=== PATIENT | male | born 1930 | race Caucasian/White ===

== ENCOUNTER 2017-03-09 17:33 | Emergency (ER) | payer OTHER ==
[~2017-03-09] VITALS: Ht 162.6 cm; Wt 72.6 kg
--- NOTE | ~2017-03-09 | EKG ---
[place] [address] [facility] [place] [address] ELECTROCARDIOGRAM REPORT Name: ISIDRO MOON Room #: [facility]P [facility]ina[facility] [id number] Admission: 03/09/17 Attend Phys: Discharge: 03/09/17 Date of : [birth year] Report #: [id number] THIS REPORT FOR: //name// [facility] ED Test Date: 2017-03-09 Test Time: 18:05:02 Pat Name: ISIDRO MOON Department: Room: Gender: M [employer] Department Chief: [facility] : 1930 Requested By: [place] Smiley Order Number: [id number] MD: Huy Pagan Measurements Intervals [place] Rate: 52 P: 57 MO: 238 QRS: 57 QRSD: 144 T: 0 QT: 492 QTc: 458 Interpretive Statements Sinus rhythm Prolonged MO interval Right bundle branch block Compared to ECG 01/06/2011 11:00:37 Myocardial infarct finding no longer present Electronically Signed On 03-10-2017 13:27:53 CDT by Huy Pagan [email or web address] <ELECTRONICALLY SIGNED> By: Huy Pagan MD 03/10/17 1327 1805 04 Huy Pagan MD /PASCUAL
[~2017-03-09 17:33] MED LIST: ADVIL PO; ALPRAZOLAM 0.0.25 MG PO; ALPRAZOLAM 0.50.5 MG PO; ASPRIMOX 325 M325 MG PO; BYSTOLIC 5 MG5 M1 PO; BYSTOLIC2.5 MG PO; FINASTERIDE5 MG PO; FLOMAX PO; GLUCOPHAGE500 MG PO; GLUCOSAMINE &1 EACH PO; IBUPROFEN200 M2 PO; LEVOTHYROXIN0.025 MG PO; LEVOTHYROXIN0.125 M1 PO; LIDOCAINE 22 %/30 GM; LOSARTAN POTASS50 MG PO; MULTIVITAMINS PO; NORVASC 5 MG TAB5 MG PO; PLAVIX 75 MG TA75 MG PO; SENOKOT-S1 TA1 GT; SIMVASTATIN20 MG PO; TYLENOL P.M. E1 EAC3 PO; VITAMIN D-32000 UNIT PO
[2017-03-09 18:27] LABS: ABSOLUTE NEUTROPHILS 3.6 thou/uL (1.4-8.2); BASOPHILS 0.8 % (0.0-2.0); EOSINOPHILS 2.4 % (0.0-3.0); HEMATOCRIT 34.3 % (42.0-52.0); HEMOGLOBIN 12.4 gm/dL (14.0-18.0); LYMPHOCYTES 19.1 % (24.0-44.0); MCHC 36.3 g/dL (28.0-37.0); MCV 96.6 fL (80.0-100.0); MONOCYTES 11.8 % (1.0-8.0); PLATELET COUNT 139 thou/uL (150-400); POLYS 65.9 % (36.0-66.0); RBC 3.55 mil/uL (4.50-6.00); RDW 13.7 % (10.5-14.5); WBC 5.5 thou/uL (4.0-11.0)
[2017-03-09 18:28] LABS: MANUAL DIFF NO
[2017-03-09 18:39] LABS: CALCIUM 8.7 mg/dL (8.5-10.1); CREATININE 1.4 mg/dL (0.7-1.3); POTASSIUM 4.1 mmol/L (3.5-5.1)
[2017-03-09 18:41] LABS: URINE BILIRUBIN NEGATIVE (Negative); URINE BLOOD TRACE (Negative); URINE COLOR YELLOW; URINE GLUCOSE-RANDOM* NEGATIVE (Negative); URINE KETONES NEGATIVE (Negative); URINE LEUKOCYTES-REFLEX NEGATIVE (Negative); URINE PROTEIN (DIPSTICK) 1+ (Negative); URINE UROBILINOGEN 0.2 E.U./dl (0.2-1.0)
[2017-03-09 18:48] LABS: CASTS None Seen /LPF (None Seen); CRYSTALS None Seen /LPF (None Seen); SQUAMOUS None Seen /LPF (0-3); URINE RBC 0-2 Rare /HPF (0-2); URINE WBC-REFLEX 0-5 Rare /HPF (0-5)
[2017-03-09 20:37] VITALS: BP 165/70
== END 2017-03-09 20:38 | disposition home or self-care (01) ==
LOC: ER 17:33
PROVIDERS: Emergency Medicine
DX: R82.71 Bacteriuria (principal); R42 Dizziness and giddiness; I25.10 Atherosclerotic heart disease of native coronary artery without angina pectoris; I10 Essential (primary) hypertension; E78.5 Hyperlipidemia, unspecified; N40.0 Benign prostatic hyperplasia without lower urinary tract symptoms; Z88.5 Allergy status to narcotic agent; Z90.89 Acquired absence of other organs; Z87.442 Personal history of urinary calculi; Z88.8 Allergy status to other drugs, medicaments and biological substances